=== PATIENT | male | born 1940 | race African-American/Black ===

== ENCOUNTER 2024-03-24 10:30 | Outpatient (CLI) | payer MEDICARE | END 2024-03-24 10:31 | disposition home or self-care (01) | LOC: ULT 10:30 | PROVIDERS: ATTEND Nurse Practitioner Family | DX: R77.1 Abnormality of globulin (principal); I70.0 Atherosclerosis of aorta; R93.421 Abnormal radiologic findings on diagnostic imaging of right kidney; R93.422 Abnormal radiologic findings on diagnostic imaging of left kidney | CPT/HCPCS: 76700 ==